=== PATIENT | female | born 1970 ===

== ENCOUNTER 2025-04-23 14:57 | Outpatient (AMB) | payer OTHER, SELFPAY ==
--- NOTE | 2025-04-23 14:59 | A.OFFVIS_ITS ---
Vital Signs 04/23/25 15:21 Height 5 ft 4 in Weight 195 lb BMI 33.5 BP 120/78 Intake Visit Reasons: New patient Annual Intake Note: Per patient last pap smear 2 years ago, normal hx. Last mammo 1 year ago, normal hx. Last menstrual 3 years ago. Family [employer] Teacher Required: Yes Family [employer] Teacher Language: [place]ian Economics Analyst: Economics Analyst Present (Opal) Accompanied by: Sister Allergies metformin Allergy (Intermediate, Verified 04/23/25 15:18) Abdominal Pain ertugliflozin (From Steglatro) Allergy (Verified 04/23/25 15:18) Itching Medication List - Last Reconciled 04/23/25 by Angelic Kelley CNM gabapentin 400 mg PO TID insulin glargine (Lantus Solostar U-100 Insulin) 20 units subcut BID rosuvastatin 20 mg PO DAILY sitagliptin phosphate (Januvia) 25 mg PO DAILY Is last menstrual period known: No Post menopausal: Yes Patient : No HPI HPI New patient Annual: Details: Patient is here accompanied by her older sister for a supervisor mixing visit. She says her last Pap smear and supervisor mixing visits were a couple of years ago she had her last mammogram about a year ago she gets occasional pains in her breasts or end ribcage both in the left and right that are occasional in the outer quadrants. Her sister had breast cancer at age 47 Patient is sexually active with a partner of about 2 years she is open to testing for STIs Today she has a headache. She is a diabetic and her blood sugar today was around 150 something Sometimes she gets a bad fungal infection that makes her itch and bleed when she scratches she has been treated with creams and also with the pill in the past she is not having any symptoms of that today She just wants to get checked in her sister wants to be sure she gets checked for everything she said she last had a Pap smear about 2 years ago and it was negative but for some reason they did a biopsy that I can not elicit. [facility] Medical History (Updated 04/23/25 @ 16:02 by Angelic Kelley CNM) delivery delivered Cluster headache Hypertension Type 2 diabetes mellitus Hyperlipemia Surgical History (Updated 04/23/25 @ 15:14 by Opal Green MA) Hx of right knee surgery Family History (Updated 04/23/25 @ 15:15 by Opal Green MA) Sister Breast cancer Social History (Updated 04/23/25 @ 15:15 by Opal Green MA) Household Members: Family Household Members Other:: sister Patient : No Current occupational status: employed Current occupation: fresh food manager Female Reproductive History Menstrual Age of Menarche: 15 Menopause type: natural Total pregnancies: 2 Full term: 2 History of abnormal pap smear: No History of abnormal mammogram: No Physical Exam Vital Signs: Last Vital Signs BP 120/78 04/23/25 15:21 BMI result Body Mass Index 33.5 Const General: healthy appearing, comfortable, no acute distress, well developed and alert Nutritional Appearance: average body habitus Orientation/consciousness: patient oriented x3 Limitations: no limitations HEENT Head: Yes normocephalic Neck Neck: Yes normal visual inspection Chest Other: No masses no dimpling no peau d'orange no anomalies that I could perceive. Chest palpation & inspection: normal inspection of the chest Breast/axilla inspection: normal inspection of the breasts and normal inspection of the axillae Breast/axilla palpation: normal palpation of the breasts and normal palpation of the axillae Resp Effort & Inspection: normal respiratory effort GI Inspection: Yes normal to inspection, No Abdominal wall edema and No distended Palpation (GI): Soft to palpation and nontender Other: Normal external exam vagina pink and moist with very normal appearing white scant mucus cervix multiparous pink smooth moist with scant white mucus. Uterus difficult to palpate but nontender adnexa nontender good tone with Kegel. General: Yes bladder normal to palpation External Female Exam: normal external appearance and normal appearance of the urethra Speculum Exam - Vagina: normal appearance of the vagina, normal palpation and normal vaginal discharge Speculum Exam - Cervix: normal appearance of the cervix, normal palpation and nontender Bimanual exam- vagina & uterus: normal bimanual exam, normal palpation, uterine size normal, bladder normal to palpation, consistency normal, normal palpation, uterine mobility normal, uterine shape normal, No Cervical tenderness present, non-tender and no cervical motion tenderness Bimanual Exam- Adnexa, other: normal adnexae, no masses, normal and No adnexal tenderness Neuro General: patient oriented x3 Assessment & Plan Assessment & Plan (1) Mastalgia in female: Code(s): N64.4 - Mastodynia Category: Medical (2) Breast pain: Comment: Patient occasionally has pain in both lower outer quadrants of both breasts... Code(s): N64.4 - Mastodynia Category: Medical (3) Family history of breast cancer in first degree relative: Comment: Her older sister at age 47... Code(s): Z80.3 - Family history of malignant neoplasm of breast Category: Medical (4) Women's annual routine gynecological examination: Code(s): Z01.419 - Encounter for gynecological examination (general) (routine) without abnormal findings Category: Medical (5) Encounter for gynecological examination with Papanicolaou smear of cervix: Comment: Patient says she has never had an abnormal but for some reason they did a biopsy 2 years ago.... 04/23/2025 Pap done... Code(s): Z01.419 - Encounter for gynecological examination (general) (routine) without abnormal findings Category: Medical (6) Type 2 diabetes mellitus: Code(s): E11.9 - Type 2 diabetes mellitus without complications Category: Medical Plan -----Discussed in this visit the following: healthy balanced diet, regular and consistent exercise, getting recommended health screens, doing the best she can for her particular health concerns, kegel exercises, pap smear screening and followup recommendations, mammography screening and SBE, normal changes in cycles in her life stage--- . I was unable to palpate any anomalies however I am ordering a diagnostic mammogram and bilateral limited breast ultrasounds. Patient is not having the particular symptoms today. Her sister voiced the concern because of the family history and her self having had breast cancer at age 47. Info about the patient portal given in Z[place]ian and also patient to be given a list of primary care provider options as she expressed curiosity about alternatives, Having expressed difficulty getting in for an appointment. Orders: Orders MM tomosynthesis diagnostic BI Today N64.4 - Mastodynia, Z80.3 - Family history of malignant neoplasm of breast US breast LT limited Today N64.4 - Mastodynia, Z80.3 - Family history of mal ignant neoplasm of breast US breast RT limited Today N64.4 - Mastodynia, Z80.3 - Family history of malignant neoplasm of breast Coding Level of Care Code New Pt Prev Care 40-64y(77744) Diagnoses Mastalgia in female N64.4 Breast pain N64.4 Family history of breast cancer in first degree relative Z80.3 Women's annual routine gynecological examination Z01.419 Encounter for gynecological examination with Papanicolaou smear of cervix Z01.419 Type 2 diabetes mellitus E11.9
[2025-04-23 15:21] VITALS: BP 120/78; BMI 33.5
--- OUTSIDE RECORDS SUMMARY | 2025-04-23 23:29 | XMS_ITS | Clinical Summary ---
Author Organization [facility] Address [address] [place] [address] Phone Care Team Providers Care Bioinformatics Assistant Name Role Phone Latesha Centeno MD Primary Care Provider [phone] Allergies Active Allergy Reactions Criticality Noted Date Comments Metformin 11/28/2024 Shellfish Derived Itching 08/22/2024 LOBSTER Ertugliflozin 08/22/2024 Medications gabapentin (NEURONTIN) 300 mg capsule 1 capsule (300 mg total) 2 (two) times a day. 11/13/2024 Active Lantus Solostar U-100 Insulin 100 unit/mL (3 mL) injection pen 30 Units at bedtime. 10/29/2024 Active rosuvastatin (CRESTOR) 20 mg tablet Take 1 tablet (20 mg total) by mouth at bedtime. 10/28/2024 Active Januvia 25 mg tablet Take 1 tablet (25 mg total) by mouth 1 (one) time each day. 01/29/2025 Active terbinafine (LamISIL) 250 mg tabletIndicatio ns:Dermatophyto sis, nail Take 1 tablet (250 mg total) by mouth 1 (one) time each day. 30 each 2 03/11/2025 Active Encounters Date Type Department Care Team Description 02/26/2025 1:30 PM EDT Office Visit Orthopedic Surgery [facility] [address] [facility] [address] [place] [address] Pradeep Serna DPM Controlled type 2 diabetes with neuropathy (CMS/HCC V24, CMS/HCC V28) (Primary Dx); Pain in toes of both feet; Hammertoes of both feet; Dermatophytosis, nail 01/29/2025 2:04 PM EDT Anesthesia Event [facility] Endoscopy [address] [place] [address] Alfredo Matt MD 01/29/2025 12:31 PM EDT - 01/29/2025 11:59 PM EDT Hospital Encounter [facility] Endoscopy [address] [place] [address] Tom Messer MD Saliga, Jesse L, MD Esophageal dysphagia Discharge Disposition: Home or Self Care from Last 3 Months Surgical History Surgery Date Site/Laterality Comments SECTION KNEE CARTILAGE SURGERY Medical History Medical History Date Comments Diabetes ([facility] V24, [facility] V28) Hyperlipidemia Asthma Family History Medical History Relation Name Comments Colon cancer Brother Colon cancer Father Colon cancer Maternal Grandmother Colon cancer Sister Relation Name Status Comments Brother Father Maternal Grandmother Sister Social History Tobacco Use Types Packs/Day Years Used Date Smoking Tobacco: Never Smokeless Tobacco: Current Tobacco Cessation:Ready to Q uit: Not Asked; Counseling Given: Not Answered Alcohol Use Standard Drinks/Week Comments Never 0 (1 standard drink = 0.6 oz pur e alcohol) Interpersonal Safety Answer Date Record ed Physical Abuse Unrecognized value 01/29/2025 Verbal Abuse Unrecognized value 01/29/2025 Comments No Sex and Gender Information Value Date Recorded Sex Assigned at Female 08/22/2024 8:18 AM EDT Legal Sex Female 2:20 AM EDT Gender Identity Female 08/22/2024 8:18 AM EDT Sexual Orientation Straight 08/22/2024 8: 18 AM EDT Last Filed Vital Signs Vital Sign Reading Time Taken Comments Blood Pressure 129/63 01/29/2025 2:39 PM EDT Pulse 77 01/29/2025 2:39 PM EDT Temperature 35.6 C (96.1 F) 01/29/2025 1:26 PM EDT Respiratory Rate 16 01/29/2025 2:39 PM EDT Oxygen Saturation 98% 01/29/2025 2:39 PM EDT Inhaled Oxygen Concentration - - Weight 85.7 kg (189 lb) 01/29/2025 1:26 PM EDT Height 162.6 cm (5' 4 ) 01/29/2025 1:26 PM EDT Body Mass Index 32.44 01/29/2025 1:26 PM EDT Plan of Treatment Upcoming Encounters Date Type Department Care Team (Late st Contact Info) Description 04/30/2025 2:30 PM EST Office Visit Orthopedic Surgery - [place] [address] [address] Pradeep Serna, DPKavitha [address] [address] Health Maintenance Due Date Last Done Comments Breast Cancer Screening 1970 Colorectal Cancer Screening: Colonoscopy 1970 Diabetes: Annual Foot Exam 1980 Diabetes: Annual Retina Eye Exam 1980 DTaP,Tdap,and Td Vaccines (1 - Tdap) 1989 Hepatitis B Vaccines (1 of 3 - 19+ 3-dose series) 1989 Pneumococcal Vaccine: 50+ Years (1 of 2 - PCV) 1989 Cervical Cancer Screening: P ap Smear 1991 RSV Immunization Adult Patients (1 - Risk 50-74 years 1-dose series) 2020 Zoster Vaccines (1 of 2) 2020 Depression Screening 05/15/2024 Cholesterol Screening (Lipid Panel) 08/22/2024 HIV Screening 08/22/2024 Hepatitis C Screening 08/22/2024 Social Influencers of Health Screening 08/22/2024 Diabetes: Annual Urine Albumin-Creatinine Ratio (uACR) 11/28/2024 Diabetes: Blood Sugar Contro l Test (HGBA1C) 11/28/2024 COVID-19 Vaccine (2024-2 6 season) 2025 Influenza Vaccine (#1) 2025 Diabetes: Annual GFR (Glomerular Filtration Rate) 10/02/2025 10/02/2024, 08/22/2024 HIB Vaccines Aged Out No longer eligi ble based on patient's age to complete this topic HPV Vaccines Aged Out No longer eligi ble based on patient's age to complete this topic Hepatitis A Vaccines Aged Out No long er eligible based on patient's age to complete this topic IPV Vaccines Aged Out No longer eligi ble based on patient's age to complete this topic MMR Vaccines Aged Out No longer eligi ble based on patient's age to complete this topic Meningococcal ACWY Vaccine Aged Out N o longer eligible based on patient's age to complete this topic Meningococcal B Vaccine Aged Out No l onger eligible based on patient's age to complete this topic RSV Immunization Patients Under 20 months Aged Out No longer eligible b ased on patient's age to complete this topic Varicella Vaccines Aged Out No longer eligible based on patient's age to complete this topic Procedures Procedure Name Priority Date/Time Associated Diagnosis Comments EGD Routine 01/29/2025 2:18 PM EDT Esophageal dysphagia TISSUE EXAM Routine 01/29/2025 2:15 PM EDT Esophageal dysphagia COMPREHENSIVE METABOLIC PANEL STAT 10/02/2024 7:36 AM EDT from Last 3 Months or Most Recently Relevant to Health Maintenance Results * EGD Anesthesia - MAC; [facility] ENDOSCOPY (01/29/2025 2:18 PM EDT) Anatomical Region Laterality Modality Other 01/29/2025 1:59 PM EDT Impressions 01/29/2025 2:21 PM EDT - Medium-sized hiatal hernia. - Low-grade of narrowing Schatzki ring. Dilated. Biopsied. Recommendation: - Await pathology results. - Observe patient's clinical course. Narrative 01/29/2025 2:21 PM EDT [facility] GI Patient Name: Quynh Hull Procedure Date: 01/29/2025 1:59 PM Date of : 1970 Age: 54 Gender: Female Note Status: Finalized Attending MD: Tom Messer MD, Procedure Date No Time: 01/29/2025 Procedure: Upper GI endoscopy Indications: Dysphagia Providers: Tom Messer MD Referring MD: Tom Messer MD Medicines: Propofol per Anesthesia Complications: No immediate complications. Estimated Blood Loss: Estimated blood loss was minimal. Procedure: Pre-Anesthesia Assessment: - ASA Grade Assessment: II - A patient with mild systemic disease. After obtaining informed consent, the endoscope was passed under direct vision. Throughout the procedure, the patient's blood pressure, pulse, and oxygen saturations were monitored continuously.The Olympus Gastroscope was introduced through the mouth, and advanced to the second part of duodenum. The upper GI endoscopy was accomplished without difficulty. The patient tolerated the procedure well. Findings: A medium-sized hiatal hernia was present. A low-grade of narrowing Schatzki ring was found at the gastroesophageal junction. A TTS dilator was passed through the scope. Dilation with an 18-19-20 mm balloon dilator was performed to 20 mm. The dilation site was examined and showed no change. Biopsies were taken with a cold forceps for histology. Estimated blood loss was minimal. Procedure Code(s): --- Professional --- 18119, Esophagogastroduodenoscopy, flexible, transoral; with transendoscopic balloon dilation of esophagus (less than 30 mm diameter) 05789, 59, Esophagogastroduodenoscopy, flexible, transoral; with biopsy, single or multiple Diagnosis Code(s): --- Professional --- K44.9, Diaphragmatic hernia without obstruction or gangrene K22.2, Esophageal obstruction R13.10, Dysphagia, unspecified CPT copyright 2020 [employer]. All rights reserved. The codes documented in this report are preliminary and upon anchor tacker review may be revised to meet current compliance requirements. Tom Messer MD 01/29/2025 2:21:43 PM This report has been signed electronically.Tom Messer MD Number of Addenda: 0 Note Initiated On: 01/29/2025 1:59 PM Scope In: Scope Out: Endoscopy Department at [facility] - [address] [place] [phone] Procedure Note Tom Messer MD - 01/29/2025 [facility] GI Patient Name: Quynh Hull Procedure Date: 01/29/2025 1:59 PM Date of : 1970 Age: 54 Gender: Female Note Status: Finalized Attending MD: Tom Messer MD, Procedure Date No Time: 01/29/2025 Procedure: Upper GI endoscopy Indications: Dysphagia Providers: Tom Messer MD Referring MD: Tom Messer MD Medicines: Propofol per Anesthesia Complications: No immediate complications. Estimated Blood Loss: Estimated blood loss was minimal. Procedure: Pre-Anesthesia Assessment: - ASA Grade Assessment: II - A patient with mild systemic disease. After obtaining informed consent, the endoscope was passed under direct vision. Throughout theprocedure, the patient's blood pressure, pulse, and oxygen saturations were monitored continuously.The Olympus Gastroscope was introduced through the mouth, and advanced to the second part of duodenum. The upperGI endoscopy was accomplished without difficulty. The patient tolerated the procedure well. Findings: A medium-sized hiatal hernia was present. A low-grade of narrowing Schatzki ring was found at the gastroesophageal junction. A TTS dilator was passed through the scope. Dilation with an 18-19-20mm balloon dilator was performed to 20 mm. Thedilation site was examined and showed no change. Biopsieswere taken with a cold forceps for histology. Estimated blood loss was minimal. Procedure Code(s): --- Professional --- 86714, Esophagogastroduodenoscopy, flexible, transoral; with transendoscopic balloon dilation of esophagus (less than 30 mm diameter) 57301, 59, Esophagogastroduodenoscopy, flexible, transoral; with biopsy, single or multiple Diagnosis Code(s): --- Professional --- K44.9, Diaphragmatic hernia without obstruction or gangrene K22.2, Esophageal obstruction R13.10, Dysphagia, unspecified CPT copyright 2020 [employer]. All rights reserved. The codes documented in this report are preliminary and upon anchor tacker reviewmay be revised to meet current compliance requirements. Tom Messer MD 01/29/2025 2:21:43 PM This report has been signed electronically.Tom Messer MD Number of Addenda: 0 Note Initiated On: 01/29/2025 1:59 PM Scope In: Scope Out: Endoscopy Department at [facility] - [address] [place] [phone] IMPRESSION: - Medium-sized hiatal hernia. - Low-grade of narrowing Schatzki ring. Dilated. Biopsied. Recommendation: - Await pathology results. - Observe patient's clinical course. us Tom Messer MD GI~PROCEDURE ORDERABLES Final Re sult * Tissue exam (01/29/2025 2:15 PM EDT) Final Diagnosis Esophagus, biopsies of Shatzke's Ring: Chronic esophagitis with increased intraepithelial eosinophils (up to 22/hpf) and reactive changes. 01/30/2025 11:26 AM EDT [facility] at 1126 EDT Gross Description A. Esophagus, biopsies of Shatzke's Ring: Labeled esophagus biopsies . Received in formalin are two irregular friable ray mucosal tissue fragments, each measuring approximately 0.3 cm in greatest dimension, which are wrapped in paper and submitted in toto in one cassette, two pieces, multiple levels on one slide. SLAVA 01/30/2025 11:26 AM EDT [facility] Disclaimer Unless otherwise specified, all tissue is 10% NB formalin fixed and paraffin embedded. 01/30/2025 11:26 AM EDT [facility] Tissue Esophageal structure / Unknown 01/29/2025 2:15 PM EDT 01/29/2025 3:50 PM EDT Tom Messer MD LAB PATHOLOGY ORDERABLES Final R esult [facility] [address] [place] [address], * (ABNORMAL) Comprehensive metabolic panel (10/02/2024 7:36 AM EDT) Sodium 134 133 - 145 mmol/L LAB CHEMISTRY METHOD 10/02/2024 9:45 AM EDT [facility] Potassium 3.9 3.5 - 5.5 mmol/L LAB CHEMISTRY METHOD 10/02/2024 9:45 AM EDT [facility] Chloride 100 96 - 110 mmol/L LAB CHEMISTRY METHOD 10/02/2024 9:45 AM EDT [facility] CO2 29 21 - 32 mmol/L LAB CHEMISTRY METHOD 10/02/2024 9:45 AM [facility] Anion Gap 5 3 - 11 LAB CHEMISTRY METHOD 10/02/2024 9:45 AM [facility] Glucose 304(H) 70 - 100 mg/dL LAB CHEMISTRY METHOD 10/02/2024 9:45 AM [facility] BUN 14 5 - 25 mg/dL LAB CHEMISTRY METHOD 10/02/2024 9:45 AM [facility] Creatinine 0.66 0.50 - 1.10 mg/dL LAB CHEMISTRY METHOD 10/02/2024 9:45 AM [facility] eGFR 104 >=60 mL/min/1. 73m2 LAB CHEMISTRY METHOD 10/02/2024 9:45 AM [facility] Comment:Calculation based on the Chronic Kidney Disease Epidemiology Collaboration (CKD-EPI) equation refit without adjustment for race. BUN/Creatinine Ratio 21.2 LAB CHEMISTRY METHOD 10/02/2024 9:45 AM [facility] Calcium 9.7 8.5 - 10.5 mg/dL LAB CHEMISTRY METHOD 10/02/2024 9:45 AM [facility] AST (SGOT) 17 10 - 42 unit/L LAB CHEMISTRY METHOD 10/02/2024 9:45 AM [facility] ALT (SGPT) 30 10 - 60 unit/L LAB CHEMISTRY METHOD 10/02/2024 9:45 AM [facility] Alkaline Phosphatase 169(H) 42 - 121 unit/L LAB CHEMISTRY METHOD 10/02/2024 9:45 AM [facility] Total Protein 7.6 6.0 - 8.0 g/dL LAB CHEMISTRY METHOD 10/02/2024 9:45 AM [facility] Albumin 3.6 3.2 - 5.0 g/dL LAB CHEMISTRY METHOD 10/02/2024 9:45 AM EDT [facility] Total Bilirubin 0.3 0.0 - 1.4 mg/dL LAB CHEMISTRY METHOD 10/02/2024 9:45 AM EDT [facility] Blood Venous blood specimen / Unknown Venipuncture / Unknown 10/02/2024 7:36 AM EDT 10/02/2024 8:57 AM EDT us Abdoul Morillo MD LAB BLOOD ORDERABLES Final Resu lt [facility] [address] [place] [address], from Last 3 Months or Most Recently Relevant to Health Maintenance [place] [address] [place] [address] [employer] Care Teams Bioinformatics Assistant Relationship Specialty Start Date End Date Latesha Centeno MD [address] [address] PCP - General Internal Medicine 01/29/25
== END 2025-04-23 16:08 | disposition home or self-care (01) ==
LOC: HO.HWSM 14:57
PROVIDERS: PCP Internal Medicine; Visit Provider Advanced Practice Midwife
DX: Z01.419 Encounter for gynecological examination (general) (routine) without abnormal findings (principal); N64.4 Mastodynia; Z80.3 Family history of malignant neoplasm of breast
CPT/HCPCS: 99386; 99459

== ENCOUNTER 2025-04-23 14:57 | Outpatient (REF) | payer OTHER, SELFPAY | END 2025-04-23 14:58 | disposition home or self-care (01) | LOC: HO.LNP 14:57 | PROVIDERS: PCP Internal Medicine; Visit Provider Advanced Practice Midwife | DX: Z01.419 Encounter for gynecological examination (general) (routine) without abnormal findings (principal); Z11.51 Encounter for screening for human papillomavirus (HPV); N64.4 Mastodynia; E11.9 Type 2 diabetes mellitus without complications; Z80.3 Family history of malignant neoplasm of breast | CPT/HCPCS: 87626; 88175 ==

== ENCOUNTER 2025-04-24 17:07 | Outpatient (REF) | payer OTHER, SELFPAY ==
--- OUTSIDE RECORDS SUMMARY | 2025-04-24 23:29 | XMS_ITS | Clinical Summary ---
Author Organization [facility] Address [address] [place] [address] Phone Care Team Providers Care Proposition Player Name Role Phone Latesha Centeno MD Primary Care Provider Allergies Active Allergy Reactions Criticality Noted Date [...] 1:30 PM EDT Office Visit Orthopedic Surgery [facility] [address] [facility] [address] [place] [address] Pradeep Serna DPM Controlled type 2 diabetes with neuropathy (CMS/HCC V24, CMS/HCC V28) (Primary Dx); Pain in toes of both feet; Hammertoes of both feet; Dermatophytosis, nail 01/29/2025 2:04 PM EDT Anesthesia Event [facility] [address] [place] [address] Alfredo Matt MD 01/29/2025 12:31 PM EDT - 01/29/2025 11:59 PM EDT Hospital Encounter [facility] [address] [place] [address] Tom Messer MD Saliga, Jesse L, MD Esophageal dysphagia Discharge Disposition: Home or Self Care from Last 3 Months Surgical History Surgery Date Site/Laterality Comments SECTION KNEE CARTILAGE SURGERY Medical History Medical History Date Comments Diabetes ([facility] V24, [facility] V28) Hyperlipidemia Asthma Family History Medical History [...] PM EST Office Visit Orthopedic Surgery - [place] [address] [phone] Pradeep Serna, DPKavitha [address] [address] Health Maintenance Due Date Last Done Comments [...] Maintenance Results * EGD Anesthesia - MAC; [facility] (01/29/2025 2:18 PM EDT) Anatomical Region Laterality Modality Other 01/29/2025 1:59 PM EDT Impressions 01/29/2025 2:21 PM EDT - Medium-sized hiatal hernia. - Low-grade of narrowing Schatzki ring. Dilated. Biopsied. Recommendation: - Await pathology results. - Observe patient's clinical course. Narrative 01/29/2025 2:21 PM EDT [facility] Patient Name: Quynh Hull Procedure Date: [...] was minimal. Procedure Code(s): --- Professional --- 67893, Esophagogastroduodenoscopy, flexible, transoral; with transendoscopic balloon dilation of esophagus (less than 30 mm diameter) 45029, 59, Esophagogastroduodenoscopy, flexible, transoral; with biopsy, single or multiple Diagnosis Code(s): --- Professional --- K44.9, Diaphragmatic hernia without obstruction or gangrene K22.2, Esophageal obstruction R13.10, Dysphagia, unspecified CPT copyright 2020 [employer]. All rights reserved. The codes documented in this report are preliminary and upon certified medical coder review may be revised to meet current compliance requirements. Tom Messer MD 01/29/2025 2:21:43 PM This report has been signed electronically.Tom Messer MD Number of Addenda: 0 Note Initiated On: 01/29/2025 1:59 PM Scope In: Scope Out: Endoscopy Department at [facility] - [address] [place] [phone] Procedure Note Tom Messer MD - 01/29/2025 [facility] Patient Name: Quynh Hull Procedure Date: [...] was minimal. Procedure Code(s): --- Professional --- 75729, Esophagogastroduodenoscopy, flexible, transoral; with transendoscopic balloon dilation of esophagus (less than 30 mm diameter) 74462, 59, Esophagogastroduodenoscopy, flexible, transoral; with biopsy, single or multiple Diagnosis Code(s): --- Professional --- K44.9, Diaphragmatic hernia without obstruction or gangrene K22.2, Esophageal obstruction R13.10, Dysphagia, unspecified CPT copyright 2020 [employer]. All rights reserved. The codes documented in this report are preliminary and upon certified medical coder reviewmay be revised to meet current compliance requirements. Tom Messer MD 01/29/2025 2:21:43 PM This report has been signed electronically.Tom Messer MD Number of Addenda: 0 Note Initiated On: 01/29/2025 1:59 PM Scope In: Scope Out: Endoscopy Department at [facility] - [address] [place] [phone] IMPRESSION: - Medium-sized hiatal hernia. - Low-grade of narrowing Schatzki ring. Dilated. Biopsied. Recommendation: - Await pathology results. - Observe patient's clinical course. us Tom Messer MD GI~PROCEDURE ORDERABLES Final Re sult * Tissue exam (01/29/2025 2:15 PM EDT) Final Diagnosis Esophagus, biopsies of Shatzke's Ring: Chronic esophagitis with increased intraepithelial eosinophils (up to 22/hpf) and reactive changes. 01/30/2025 11:26 AM EDT [facility] at 1126 EDT Gross Description A. Esophagus, biopsies of Shatzke's Ring: Labeled esophagus biopsies . Received in formalin are two irregular friable ray mucosal tissue fragments, each measuring approximately 0.3 cm in greatest dimension, which are wrapped in paper and submitted in toto in one cassette, two pieces, multiple levels on one slide. SLAVA 01/30/2025 11:26 AM EDT [facility] Disclaimer Unless otherwise specified, all tissue is 10% NB formalin fixed and paraffin embedded. 01/30/2025 11:26 AM EDT [facility] Tissue Esophageal structure / Unknown 01/29/2025 2:15 PM EDT 01/29/2025 3:50 PM EDT Tom Messer MD LAB PATHOLOGY ORDERABLES Final R esult [facility] [address] [place] [address], * (ABNORMAL) Comprehensive metabolic panel (10/02/2024 7:36 AM EDT) Sodium 134 133 - 145 mmol/L LAB CHEMISTRY METHOD 10/02/2024 9:45 AM EDT [facility] Potassium 3.9 3.5 - 5.5 mmol/L LAB CHEMISTRY METHOD 10/02/2024 9:45 AM EDT [facility] Chloride 100 96 - 110 mmol/L LAB CHEMISTRY METHOD 10/02/2024 9:45 AM EDT [facility] CO2 29 21 - 32 mmol/L LAB CHEMISTRY METHOD 10/02/2024 9:45 AM [facility] Anion Gap 5 3 - 11 LAB CHEMISTRY METHOD 10/02/2024 9:45 AM [facility] Glucose 304(H) 70 - 100 mg/dL LAB CHEMISTRY METHOD 10/02/2024 9:45 AM [facility] BUN 14 5 - 25 mg/dL LAB CHEMISTRY METHOD 10/02/2024 9:45 AM [facility] Creatinine 0.66 0.50 - 1.10 mg/dL LAB CHEMISTRY METHOD 10/02/2024 9:45 AM [facility] eGFR 104 >=60 mL/min/1. 73m2 LAB CHEMISTRY METHOD 10/02/2024 9:45 AM [facility] Comment:Calculation based on the Chronic Kidney Disease Epidemiology Collaboration (CKD-EPI) equation refit without adjustment for race. BUN/Creatinine Ratio 21.2 LAB CHEMISTRY METHOD 10/02/2024 9:45 AM [facility] Calcium 9.7 8.5 - 10.5 mg/dL LAB CHEMISTRY METHOD 10/02/2024 9:45 AM [facility] AST (SGOT) 17 10 - 42 unit/L LAB CHEMISTRY METHOD 10/02/2024 9:45 AM [facility] ALT (SGPT) 30 10 - 60 unit/L LAB CHEMISTRY METHOD 10/02/2024 9:45 AM [facility] Alkaline Phosphatase 169(H) 42 - 121 unit/L LAB CHEMISTRY METHOD 10/02/2024 9:45 AM [facility] Total Protein 7.6 6.0 - 8.0 g/dL LAB CHEMISTRY METHOD 10/02/2024 9:45 AM [facility] Albumin 3.6 3.2 - 5.0 g/dL LAB CHEMISTRY METHOD 10/02/2024 9:45 AM EDT [facility] Total Bilirubin 0.3 0.0 - 1.4 mg/dL LAB CHEMISTRY METHOD 10/02/2024 9:45 AM EDT [facility] Blood Venous blood specimen / Unknown Venipuncture / Unknown 10/02/2024 7:36 AM EDT 10/02/2024 8:57 AM EDT us Abdoul Morillo MD LAB BLOOD ORDERABLES Final Resu lt [facility] [address] [place] [address], from Last 3 Months or Most Recently Relevant to Health Maintenance [place] [address] [place] [address] [employer] Care Teams Proposition Player Relationship Specialty Start Date End Date Latesha Centeno MD [address] [phone] PCP - General Internal Medicine 01/29/25
[2025-04-25 09:37] LABS: Bacterial Vaginosis PCR POSITIVE (Negative); Candida Group PCR NOT DETECTED (Not Detect); Candida glab krusei PCR NOT DETECTED (Not Detect); Trichomonas vaginalis PCR NOT DETECTED (Not Detect)
[2025-04-25 10:09] LABS: CT PCR NOT DETECTED (Not Detect.); NG PCR NOT DETECTED (Not Detect.)
== END 2025-04-24 17:08 ==
LOC: HO.LNP 17:07
PROVIDERS: Visit Provider Advanced Practice Midwife
DX: Z01.419 Encounter for gynecological examination (general) (routine) without abnormal findings (principal); Z20.2 Contact with and (suspected) exposure to infections with a predominantly sexual mode of transmission
CPT/HCPCS: 81515; 87491; 87591